=== PATIENT | male | born 1985 | race Caucasian/White ===

== ENCOUNTER 2021-02-25 08:22 | Emergency (ER) | payer MEDICAID ==
[~2021-02-25] VITALS: Ht 167.6 cm; Wt 79.0 kg
[2021-02-25] MEDS ORDERED: ONDANSETRON 4MG ODT PO STA (08:44)
[2021-02-25] MEDS ORDERED: MORPHINE SULFATE 4 MG/ML CPJ (NOT FOR IM USE) IV STA (08:44)
[2021-02-25] MEDS ORDERED: IBUP-2029 MT (10:54)
[2021-02-25] MEDS ORDERED: HYDROCODONE/ACETAMINOPHEN 5/325MG TABLET PO NR (11:00)
[2021-02-25] MEDS ORDERED: KETOROLAC 60MG/2ML VIAL IM ONE (11:15)
[2021-02-25 11:28] VITALS: BP 140/78
== END 2021-02-25 11:28 | disposition home or self-care (01) ==
LOC: ER 08:22
DX: M25.519 Pain in unspecified shoulder (principal); M79.606 Pain in leg, unspecified; M54.2 Cervicalgia; V49.40XA Driver injured in collision with unspecified motor vehicles in traffic accident, initial encounter; Y93.9 Activity, unspecified; Y92.410 Unspecified street and highway as the place of occurrence of the external cause
CPT/HCPCS: 29125; 70450; 71045; 72125; 73030; 73060; 73110; 73130; 73502; 73552; 73562; 96372; 99285; J1885; Q0162; A4565; J2270; L0172